=== PATIENT | male | born 1965 | race Caucasian/White ===

== ENCOUNTER 2017-01-31 18:40 | Emergency (ER) | payer OTHER ==
[2017-01-31 18:46] VITALS: BP 153/99
[2017-01-31] MEDS ORDERED: Acetaminophen/HYDROcodone 325-5 MG Tab PO ONE (18:49)
[2017-01-31] MEDS ORDERED: Take Home: Acetaminophen/HYDROcodone 325-5 MG, 2 Tab Pack PO ONE (19:39)
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
== END 2017-01-31 20:00 | disposition home or self-care (01) ==
LOC: CC.ED 18:40
DX: S52.571A Other intraarticular fracture of lower end of right radius, initial encounter for closed fracture (principal); E78.00 Pure hypercholesterolemia, unspecified; W19.XXXA Unspecified fall, initial encounter; Y93.89 Activity, other specified
CPT/HCPCS: 73110; 99283; A9270; 29125

== ENCOUNTER 2020-09-09 14:14 | Emergency (ER) | payer OTHER ==
[2020-09-09 14:41] VITALS: BP 160/93; PULSE 79
[2020-09-09] MEDS ORDERED: Ketorolac 60 MG/2 ML SDV IM ONE (14:54)
[2020-09-09 15:18] LABS: CHLORIDE,CL 105 mEq/L (98-106); SODIUM,NA 143 mEq/L (136-145)
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
[2020-09-09] MEDS ORDERED: Acetaminophen/HYDROcodone 325-5 MG Tab ONE (15:30)
[2020-09-09] MEDS ORDERED: Take Home: Acetaminophen/HYDROcodone 325-5 MG, 2 Tab Pack PO ONE (15:37)
== END 2020-09-09 16:03 | disposition home or self-care (01) ==
LOC: CC.ED 14:14
DX: M25.562 Pain in left knee (principal); E78.00 Pure hypercholesterolemia, unspecified; Z79.899 Other long term (current) drug therapy
CPT/HCPCS: 36415; 80048; 85025; 85651; 96372; 99283; A9270; J1885; 85652

== ENCOUNTER 2023-06-11 02:00 | Observation (INO) | payer OTHER ==
[2023-06-11] MEDS ORDERED: Lidocaine 1% 30 ML SDV INJECT ONE (02:55)
[2023-06-11 02:57] LABS: BASOPHILS ABSOLUTE AUTO 0.04 10^3/uL (0.00-0.50); BASOPHILS PERCENT AUTO 0.4 % (0-1); EOSINOPHILS ABSOLUTE AUTO 0.08 10^3/uL (0.00-1.50); EOSINOPHILS PERCENT AUTO 0.8 % (0-6); HEMATOCRIT 42.8 % (42.0-52.0); HEMOGLOBIN 14.4 g/dL (14.0-18.0); IMMATURE GRAN ABSOLUTE AUTO 0.08 10^3/uL (0.00-0.49); IMMATURE GRAN PERCENT AUTO 0.8 % (0.0-4.9); LYMPHOCYTES ABSOLUTE AUTO 1.93 10^3/uL (0.60-5.00); LYMPHOCYTES PERCENT AUTO 19.8 % (24-44); MEAN CORPUSCULAR HGB CONC 33.6 g/dL (32.0-36.0); MEAN CORPUSCULAR VOLUME 86.3 fL (83.0-97.0); MONOCYTES PERCENT AUTO 6.1 % (0-10); NEUTROPHILS ABSOLUTE AUTO 7.04 x10^3/uL (1.80-8.00); NEUTROPHILS PERCENT AUTO 72.1 % (41-71); PLATELET COUNT,PLT 210 10^3/uL (150-400); RED BLOOD CELL COUNT 4.96 x10^6/uL (4.50-6.00); WHITE BLOOD CELL COUNT,WBC 9.8 10^3/uL (4.0-11.0)
[2023-06-11 03:11] LABS: ALBUMIN 3.8 g/dL (3.4-5.0); BILIRUBIN TOTAL 0.3 mg/dL (0.0-1.0); C-REACTIVE PROTEIN 0.17 mg/dL (<=0.30); CALCIUM 8.4 mg/dL (8.4-10.1); EST CRCL DRUG DOSING (CG) 74.36 mL/min; POTASSIUM,K 3.3 mEq/L (3.5-5.0); PROTEIN TOTAL,TP 7.5 g/dL (6.4-8.2)
[2023-06-11 03:30] LABS: APPEARANCE,URINE CLEAR (CLEAR); BILIRUBIN,URINE NEGATIVE (NEGATIVE); COLOR,URINE YELLOW (YELLOW); GLUCOSE,URINE NEGATIVE (NEGATIVE); KETONES,URINE NEGATIVE (NEGATIVE); LEUKOCYTE ESTERASE,URINE NEGATIVE (NEGATIVE); NITRITE,URINE NEGATIVE (NEGATIVE); OCCULT BLOOD,URINE TRACE-INTACT (NEGATIVE); PH,URINE 5.5 (4.5-8.0); PROTEIN,URINE NEGATIVE (NEGATIVE); UROBILINOGEN,URINE 0.2 EU/dL (0.2-1.0)
[2023-06-11 03:33] LABS: BACTERIA,URINE NOT SEEN /HPF (NOT SEEN); EPITHELIAL CELLS,URINE NOT SEEN /HPF (NOT SEEN); MUCUS,URINE OCCASIONAL /HPF (NOT SEEN); RBC,URINE 0-5 /HPF (0-5); WBC,URINE NOT SEEN /HPF (0-5)
[2023-06-11] MEDS ORDERED: Naloxone 2 MG/2 ML Syringe IVPUSH PRN (03:48)
[2023-06-11] MEDS ORDERED: HYDROmorphone 1 MG/ML Syringe IVPUSH ONE (03:48)
[2023-06-11] MEDS ORDERED: Ondansetron 4 MG Tab.DIS PO PRN (05:29)
[2023-06-11] MEDS ORDERED: Acetaminophen 325 MG Tab PO PRN (05:29)
[2023-06-11] MEDS ORDERED: Sodium Chloride 0.9% 10 ML Syringe FLUSH PRN (05:29)
[2023-06-11] MEDS ORDERED: Acetaminophen/oxyCODONE 325-5 MG Tab PO PRN (05:29)
[2023-06-11] MEDS ORDERED: Ondansetron 4 MG/2 ML SDV IV PRN (05:29)
[2023-06-11] MEDS ORDERED: HYDROmorphone 1 MG/ML Syringe IVPUSH PRN (05:29)
[2023-06-11] MEDS ORDERED: Cyclobenzaprine 10 MG Tab PO PRN (06:12)
[2023-06-11] MEDS ORDERED: Losartan 25 MG Tab PO SCH (08:00)
[2023-06-11] MEDS ORDERED: amLODIPine 10 MG Tab PO SCH (08:00)
[2023-06-11 16:07] VITALS: BP 138/69; PULSE 74
[2023-06-11] MEDS ORDERED: Take Home: Acetaminophen/oxyCODONE 325-5 MG, 2 Tab Pack PO ONE (16:07)
[2023-06-11] MEDS ORDERED: Take Home: Cyclobenzaprine 10 MG Tab, 4 Tab Pack PO ONE (16:07)
[2023-06-11] MEDS ORDERED: atorvaSTATin 10 MG Tab PO SCH (20:00)
== END 2023-06-11 16:25 | disposition home or self-care (01) ==
LOC: CC.ED 02:00 → UNDOADMOB 04:15 → CC.MS 04:15 → UNDODISOB 16:25
PROVIDERS: ADMIT Physician Assistant Medical; ATTEND Physician Assistant Medical
DX: S12.501A Unspecified nondisplaced fracture of sixth cervical vertebra, initial encounter for closed fracture (principal); I60.9 Nontraumatic subarachnoid hemorrhage, unspecified; E78.00 Pure hypercholesterolemia, unspecified; W10.8XXA Fall (on) (from) other stairs and steps, initial encounter; Z79.899 Other long term (current) drug therapy
CPT/HCPCS: 12017; 36415; 70450; 71045; 72125; 72128; 72170; 80053; 80307; 81001; 85025; 86140; 96374; 99285-25; A9270-GY; G0378; J1170; J3490